=== PATIENT | male | born 1990 | race Caucasian/White ===

== ENCOUNTER 2016-09-24 23:12 | Emergency (ER) | END 2016-09-25 05:20 | disposition home or self-care (01) | DX: H61.23 Impacted cerumen, bilateral (principal); M26.623 Arthralgia of bilateral temporomandibular joint ==

== ENCOUNTER 2019-01-16 11:53 | Emergency (ER) | payer OTHER ==
[~2019-01-16] VITALS: Ht 165.1 cm; Wt 73.9 kg
[~2019-01-16 11:53] MED LIST: CARB15DR50 BOTH EARS; IBUP-1542 PO; NPH10OT BOTH EARS
[2019-01-16 12:11] VITALS: BP 156/95; PULSE 86; RESP 16; Ht 165.1 cm; Wt 73.9 kg
[2019-01-16] MEDS ORDERED: METH750T93 PO (12:38)
[2019-01-16] MEDS ORDERED: ACET-141 PO (12:38)
[2019-01-16] MEDS ORDERED: IBUP-1561 PO (12:38)
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
== END 2019-01-16 12:40 | disposition home or self-care (01) ==
LOC: E/R 11:53
DX: S39.92XA Unspecified injury of lower back, initial encounter (principal); F17.210 Nicotine dependence, cigarettes, uncomplicated; W01.0XXA Fall on same level from slipping, tripping and stumbling without subsequent striking against object, initial encounter; Y92.9 Unspecified place or not applicable
CPT/HCPCS: 99283

== ENCOUNTER → 2019-02-11 | Emergency (ER) | payer OTHER ==
[~2019-02-11] VITALS: Ht 167.6 cm; Wt 73.4 kg
[~2019-02-11] MED LIST changes: +ACET-141 PO; +IBUP-1561 PO; +METH750T93 PO; +NAPR-985 PO
[2019-02-11 15:47] VITALS: BP 147/74; PULSE 105; RESP 20; Ht 167.6 cm; Wt 73.4 kg
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
== END | disposition home or self-care (01) ==
LOC: FTE 15:43
DX: S13.4XXA Sprain of ligaments of cervical spine, initial encounter (principal); F17.210 Nicotine dependence, cigarettes, uncomplicated; V49.50XA Passenger injured in collision with unspecified motor vehicles in traffic accident, initial encounter
CPT/HCPCS: 99282